=== PATIENT | male | born 1975 | race Caucasian/White ===

== ENCOUNTER 2024-09-30 15:20 | Emergency (ER) | payer OTHER, SELFPAY ==
[2024-09-30] VITALS (7 sets, daily range): BP systolic 121–154; BP diastolic 75–101; PULSE 78–100; RESP 15–17; TEMP 36.8; O2SAT 93–100
--- NOTE | ~2024-09-30 | CT_ITS ---
EXAMINATION: CTA chest abdomen pelvis DATE: 09/30/2024 16:19 INDICATION: Chest pain radiating to the back and left arm. TECHNIQUE: Computed tomographic angiography (CTA) of the chest, abdomen, and pelvis was performed wit h 100 mL Omnipaque-350 intravenous contrast. Automated exposure control and iterative reconstruction technique were employed. The dose-length product was 743.75 mGy-cm. Maximum intensity projection 3D-r econstructions of the aorta and other arteries were constructed by the technologist on a separate wor kstation. COMPARISON: Chest single view 09/30/2024 FINDINGS: CHEST CTA: The lungs demonstrate mild atelectasis. No pleural effusion. The heart size is normal. No pericardial effusion. There is mild aortic atherosclerosis. No aneurysm or dissection. There is no pulmonary emb olus. The bones are unremarkable. ABDOMEN AND PELVIS CTA: The liver, gallbladder, spleen, pancreas, adrenal glands, and kidneys are normal. There are bilateral inguinal hernias containing fat. Abdominal aorta is normal in caliber. There is mild aortic atherosc lerosis. There is no significant stenosis of celiac axis, superior mesenteric artery, the renal arter ies, or inferior mesenteric artery. The bladder is distended. There are no dilated loops of bowel. Th ere are changes of appendectomy. There are no pathologically enlarged lymph nodes. There is no free i ntraperitoneal fluid. There is mild lumbar spondylosis. IMPRESSION: 1. Mild aortic atherosclerosis. No aneurysm or dissection. Reviewed, dictated and finalized at location A. 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
--- NOTE | ~2024-09-30 | XR_ITS ---
XR chest 1V portable Ordering provider: Michele Culver MD History: 48 years Male with . cp . Comparison: None. FINDINGS: MEDIASTINUM: The cardiac silhouette is not enlarged. LUNGS: No infiltrates, effusions or pneumothorax. Bilateral minimal fibrotic changes in the lung base s. OTHER: No free air under the diaphragm. IMPRESSION: No acute cardiopulmonary pathology. Reviewed, dictated and finalized at location A. [employer]
--- NOTE | 2024-09-30 15:26 | ECG_ITS ---
Test Date: 2024-09-30 15:27:34 Measurements Intervals [place] Rate: 98 P: 55 OK: 148 QRS: 42 QRSD: 85 T: 54 QT: 322 QTc: 411 Interpretive Statements SINUS RHYTHM NONSPECIFIC T-WAVE ABNORMALITY No previous ECG available for comparison Electronically Signed On 09-30-2024 16:23:04 [employer] ATTACHER by Jose Walls M.D.
[2024-09-30 15:41] LABS: Basophils Absolute Auto 0.1 K/mm3 (0.0-0.1); Basophils Percent Auto 0.9 % (0.2-1.2); Eosinophils Absolute Auto 0.4 K/mm3 (0-0.3); Eosinophils Percent Auto 6.3 % (0-4.4); Hematocrit 43.5 % (42.0-52.0); Hemoglobin 15.5 g/dL (14.0-18.0); Immature Granulocyte Absolute 0.01 K/mm3 (0.00-0.031); Immature Granulocyte Percent A 0.2 % (0-0.5); Lymphocytes Percent Auto 21.4 % (18.3-44.2); Mean Corpuscular HGB Conc 35.6 g/dl (32-36); Mean Corpuscular Hemoglobin 32.2 pg (26-34); Mean Corpuscular Volume 90.4 fl (80-100); Mean Platelet Volume 8.8 fl (7.4-10.4); Monocytes Absolute Auto 0.6 K/mm3 (0.1-0.6); Monocytes Percent Auto 9.2 % (2.6-8.5); Neutrophils Absolute Auto 4.1 K/mm3 (1.3-6.7); Platelet Count Result 243 k/mm3 (150-375); Red Blood Count 4.81 M/mm3 (4.6-6.20); Red Cell Distribution Width 11.9 % (11.5-14.5); White Blood Count 6.6 K/mm3 (4.5-10.0)
[2024-09-30 15:52] LABS: Alanine Aminotransferase 39 U/L (6-50); Albumin Level 4.7 g/dL (3.5-5.1); Alkaline Phosphatase 73 U/L (38-126); Anion Gap 7 mmol/L (4-12); Aspartate Amino Transferase 44 U/L (17-59); Bilirubin,Total 1.4 mg/dL (0.2-1.3); Blood Urea Nitrogen 13 mg/dL (9-20); Calcium 9.5 mg/dL (8.4-10.2); Carbon Dioxide 29 mmol/L (22-30); Chloride 102 mmol/L (98-107); Estimated CRCL calculation 83 ml/min; Estimated Glomerular Filt Rate > 60; Glucose 107 mg/dL (65-110); Lipase 91 U/L (23-300); Potassium 4.3 mmol/L (3.4-5.0); Sodium 138 mmol/L (137-145)
[2024-09-30 15:55] LABS: INR 0.9; Partial Thromboplastin Time 21.8 Seconds (22.3-36.8); Prothrombin Time 12.8 Seconds (11.1-14.7)
[2024-09-30 16:03] LABS: Troponin I < 0.012 ng/mL (0.000-0.034)
[2024-09-30 17:58] LABS: NT Pro B Type Natriuretic Pept < 20 pg/mL (19.9-100)
--- NOTE | 2024-09-30 18:06 | ECG_ITS ---
Test Date: 2024-09-30 18:15:54 Measurements Intervals [place] Rate: 87 P: 58 [place]: 148 QRS: 51 QRSD: 90 T: 40 QT: 346 QTc: 418 Interpretive Statements SINUS RHYTHM WITH SINUS ARRHYTHMIA NONSPECIFIC T-WAVE ABNORMALITY Compared to ECG 09/30/2024 15:27:34 No significant changes Electronically Signed On 10-01-2024 14:19:09 [employer]IMMING [employer]OL ATTENDANT by Jose Walls M.D.
--- NOTE | 2024-09-30 18:29 | ED.GENADULT ---
HPI - General Adult General Chief complaint: Chest Pain Stated complaint: Chest Pain Time Seen by Provider: 09/30/24 15:23 History of Present Illness HPI narrative: this is a 48-year-old male history of chronic pain presenting with chest pain. He is 30 minutes prior to arrival he developed a chest pressure in the center of his chest wall sitting at his desk. His 1st dull and then is now sharp. It radiated to his left biceps to his back. Pain is constant. He has never had pain like this before there are no exacerbating alleviating symptoms. Pain was not associated with exertion diaphoresis or vomiting. No history of coronary artery disease. Patient has had significant issues of chronic pain and is scheduled to see a neurosurgeon and pain specially for chronic back pain. No fevers chills shortness of breath abdominal pain nausea vomiting or diarrhea Related Data Allergies Allergy/AdvReac Type Severity Reaction Status Date / Time erythromycin base Allergy Vomiting Verified 09/30/24 15:30 meloxicam Allergy Rash Verified 09/30/24 15:30 lisinopril AdvReac Cough Verified 09/30/24 15:30 Course Vital Signs Vital signs: Vital Signs Pulse Rate 95 09/30/24 15:21 Respiratory Rate 16 09/30/24 15:21 Blood Pressure 147/79 H 09/30/24 15:21 Pulse Oximetry 98 09/30/24 15:21 Oxygen Delivery Room Air 09/30/24 15:21 Pulse Rate 78 09/30/24 17:18 Respiratory Rate 16 09/30/24 17:18 Blood Pressure 147/95 H 09/30/24 17:18 Pulse Oximetry 93 09/30/24 17:18 Oxygen Delivery Room Air 09/30/24 17:00 Medical Decision Making [facility] Narrative Medical decision making narrative: -Course: 48-year-old male presenting chest pain. CTA chest abdomen pelvis, EKG x2, troponin x2 and BNP were all unremarkable. no emergent cause of chest pain on this workup. Patient is stable for further outpatient workup by his primary care physician. Heart score <4 Results were discussed with the patient his . Return precautions given. -DDX includes but is not limited to: ACS, chest wall pain, pleurisy, chronic pain, PE, dissection, pneumonia, pneumothorax -Co-morbidities complicating care: Chronic pain, HTN -Social determinants of health: positive for alcohol and marijuana -Independent interpretation of studies: Labs and imaging reviewed Independent EKG interpretation: Rhythm [sinus], Rate [87], [place] -[normal], HI -[normal], QRS [narrow], QTC [normal], T waves -[negative for concerning inversions], ST Segments - [Negative for concerning elevations] Final interpretations: [Normal Sinus Rhythm] -Shared decision making / Disposition: discharge Vital Signs Vital Signs: Vital Signs Pulse Rate 95 09/30/24 15:21 Respiratory Rate 16 09/30/24 15:21 Blood Pressure 147/79 H 09/30/24 15:21 Pulse Oximetry 98 09/30/24 15:21 Oxygen Delivery Room Air 09/30/24 15:21 Pulse Rate 78 09/30/24 17:18 Respiratory Rate 16 09/30/24 17:18 Blood Pressure 147/95 H 09/30/24 17:18 Pulse Oximetry 93 09/30/24 17:18 Oxygen Delivery Room Air 09/30/24 17:00 Lab Data 09/30/24 15:34 09/30/24 15:34 Labs: Lab Results 09/30/24 09/30/24 09/30/24 Range/Units 15:33 15:34 18:11 WBC 6.6 (4.5-10.0) K/mm3 RBC 4.81 (4.6-6.20) M/mm3 Hgb 15.5 (14.0-18.0) g/dL Hct 43.5 (42.0-52.0) % MCV 90.4 (80-100) fl MCH 32.2 (26-34) pg MCHC 35.6 (32-36) g/dl RDW 11.9 (11.5-14.5) % Plt Count 243 (150-375) k/mm3 MPV 8.8 (7.4-10.4) fl Immature Gran % (Auto) 0.2 (0-0.5) % Neut % (Auto) 62.0 (45.5-73.1) % Lymph % (Auto) 21.4 (18.3-44.2) % Dickson % (Auto) 9.2 H (2.6-8.5) % Eos % (Auto) 6.3 H (0-4.4) % Baso % (Auto) 0.9 (0.2-1.2) % Lymph # (Auto) 1.40 (0.9-3.2) K/mm3 Dickson # (Auto) 0.6 (0.1-0.6) K/mm3 Eos # (Auto) 0.4 H (0-0.3) K/mm3 Baso # (Auto) 0.1 (0.0-0.1) K/mm3 Abs Immat Gran (auto) 0.01 (0.00-0.031) K/mm3 Absolute Neuts (auto) 4.1 (1.3-6.7) K/mm3 Absolute Nucleated RBC 0.000 (0.0-0.012) K/mm3 Nucleated RBC % 0.0 (0.0-0.2) % PT 12.8 (11.1-14.7) Seconds INR 0.9 APTT 21.8 L (22.3-36.8) Seconds Sodium 138 (137-145) mmol/L Potassium 4.3 (3.4-5.0) mmol/L Chloride 102 (98-107) mmol/L Carbon Dioxide 29 (22-30) mmol/L Anion Gap 7 (4-12) mmol/L BUN 13 (9-20) mg/dL Creatinine 0.90 (0.7-1.3) mg/dL Estim Creat Clear Calc 83 ml/min Estimated GFR > 60 (59 - ) Glucose 107 (65-110) mg/dL Calcium 9.5 (8.4-10.2) mg/dL Total Bilirubin 1.4 H (0.2-1.3) mg/dL AST 44 (17-59) U/L ALT 39 (6-50) U/L Alkaline Phosphatase 73 (38-126) U/L Troponin I < 0.012 < 0.012 (0.000-0.034) ng/mL NT-Pro-B Natriuret Pep < 20 (19.9-100) pg/mL Total Protein 7.0 (6.3-8.2) g/dL Albumin 4.7 (3.5-5.1) g/dL Lipase 91 (23-300) U/L Discharge Plan Discharge Clinical Impression: Atypical chest pain Patient Disposition: Home, Self-Care Condition: Stable Instructions: Antibiotic Form, Chest Pain (ED) Additional Instructions: You were seen in the emergency department for chest pain. We did not find a cause of your pain. Please follow-up with your primary care physician and pain specialist for further management if you develop fevers, shortness of breath, or any new or worsening symptoms please return to the ED for re-evaluation. Patient Language: Vietnamese Follow-up/Referrals: UNKNOWN,DOCTOR [Primary Care Provider] - Quality HEART score for chest pain patients History: slightly suspicious ECG: normal Age: > 45 and < 65 years Risk factors: no risk factors known Troponin: < or = to 1x normal limit Heart score: 1
[2024-09-30 18:58] LABS: Troponin I < 0.012 ng/mL (0.000-0.034)
== END 2024-09-30 19:45 | disposition home or self-care (01) ==
PROVIDERS: Emergency Provider Emergency Medicine
DX: R07.89 Other chest pain (principal); I10 Essential (primary) hypertension; G89.29 Other chronic pain; R94.31 Abnormal electrocardiogram [ECG] [EKG]
CPT/HCPCS: 36415; 71045; 71275; 74174; 80053; 83690; 83880; 84484; 85025; 85610; 85730; 93005; 99284; Q9967

== ENCOUNTER 2024-11-25 15:10 | Outpatient (CLI) | payer OTHER, SELFPAY ==
--- NOTE | ~2024-11-25 | MR_ITS ---
EXAMINATION: MR lumbar spine wo con DATE: 11/25/2024 15:54 INDICATION: Low back pain. Spinal stenosis. TECHNIQUE: Magnetic resonance imaging (MRI) of the lumbar spine was performed without intravenous con trast. Sequences included sagittal T2-weighted FSE, sagittal T2-weighted FS FSE, sagittal T1-weighted FSE, and axial T2-weighted FSE. COMPARISON: None FINDINGS: Alignment is normal. Vertebral body heights are normal. There is mildly decreased disc heig ht at L4-L5. The distal spinal cord signal intensity is normal. The conus medullaris is at T12. The f ollowing disc levels are specifically discussed: L1-L2: The disc does not extend beyond the endplate margin. There is mild bilateral facet joint osteo arthritis. There is no neural foraminal stenosis. There is no central canal stenosis. L2-L3: The disc does not extend beyond the endplate margin. There is mild bilateral facet joint osteo arthritis. There is no neural foraminal stenosis. There is no central canal stenosis. L3-L4: The disc is mildly bulging. There is mild bilateral facet joint osteoarthritis. There is mild bilateral neural foraminal stenosis. There is no central canal stenosis. L4-L5: The disc is bulging. There is severe bilateral facet joint osteoarthritis. There is mild bilat eral neural foraminal stenosis. There is mild central canal stenosis. L5-S1: The disc does not extend beyond the endplate margin. There is moderate bilateral facet joint o steoarthritis. There is no neural foraminal stenosis. There is no central canal stenosis. IMPRESSION: 1. Mild lumbar spondylosis. Reviewed, dictated and finalized at location A. [employer] IMPRESSION: 1. Mild lumbar spondylosis.
== END 2024-11-25 15:11 | disposition home or self-care (01) ==
PROVIDERS: Visit Provider Internal Medicine
DX: M48.062 Spinal stenosis, lumbar region with neurogenic claudication (principal); M89.9 Disorder of bone, unspecified; M47.896 Other spondylosis, lumbar region
CPT/HCPCS: 72148

== ENCOUNTER 2024-12-24 10:27 | Outpatient (CLI) | payer OTHER, SELFPAY ==
--- NOTE | ~2024-12-24 | MR_ITS ---
EXAMINATION: MR brain/brain stem wo con DATE: 12/24/2024 11:17 INDICATION: Tremor. TECHNIQUE: Magnetic resonance imaging (MRI) of the brain and brainstem was performed without intraven ous contrast. COMPARISON: None. FINDINGS: There are scattered areas of nonspecific increased T2-weighted signal intensity in the cere bral white matter, which is within normal limits for the patient's age. There is no intracranial hemo rrhage, acute infarction, or abnormal intracranial mass lesion. The ventricles are normal in size. Th ere is mucosal thickening in left maxillary sinus. There is a trace right mastoid effusion. The orbit s are normal. IMPRESSION: 1. Normal brain. Reviewed, dictated and finalized at location B. IMPRESSION: 1. Normal brain.
== END 2024-12-24 10:28 | disposition home or self-care (01) ==
PROVIDERS: Referring Provider Internal Medicine; Visit Provider Psychiatry & Neurology Neurology
DX: R25.1 Tremor, unspecified (principal)
CPT/HCPCS: 70551

== ENCOUNTER 2025-06-14 13:02 | Emergency (ER) | payer OTHER, SELFPAY ==
[2025-06-14 13:10] VITALS: O2SAT 98
[2025-06-14 13:13] VITALS: BP 166/89; PULSE 117; RESP 16; TEMP 36.1; O2SAT 98
--- NOTE | 2025-06-14 13:38 | ED_ITS ---
HPI - URI/Sore Throat General Chief Complaint: Upper Respiratory Infection Stated Complaint: Sinus Infection Symptoms Time Seen by Provider: 06/14/25 13:38 Source: patient Mode of arrival: ambulatory Limitations: no limitations History of Present Illness HPI Narrative: 49-year-old male presents with complaint of chronic sinusitis. Reports congestion, postnasal drainage, sinus pressure for 8-9 days. Patient takes Xyzal daily. Has added and Flonase since pressure and drainage started. Afebrile. Reports yellowish green drainage from nose. Positive fatigue. Afebrile. All systems reviewed and negative except as noted above. Related Data Allergies Allergy/AdvReac Type Severity Reaction Status Date / Time erythromycin base Allergy Vomiting Verified 06/14/25 13:15 meloxicam Allergy Rash Verified 06/14/25 13:15 lisinopril AdvReac Cough Verified 06/14/25 13:15 PMFSH Comments At time of signature, agree with nursing past medical, surgical, social and family history. There is no relevant family history pertinent to the presenting complaint. Exam Narrative: GENERAL: This is a well-nourished, well-developed patient, in no apparent distress. HEAD: normocephalic, atraumatic. EYES: PERRL. Sclera clear/white. Vision is grossly intact. EARS: External ears normal, auditory canals clear and without drainage, TMs normal without perforation. Hearing grossly intact. NOSE: External nose normal with purulent nasal drainage, erythema to bilateral nares. No significant swelling. Frontal sinus tenderness on exam. THROAT: Mucous membranes moist, erythematous, clear post nasal drainage. No swelling or exudates. NECK: Neck supple, non-tender without lymphadenopathy, masses or thyromegaly. CARDIOVASCULAR: Regular rate and rhythm without murmurs, gallops, or rubs. RESPIRATORY: Clear to auscultation. Breath sounds equal bilaterally. No wheezes, rales, or rhonchi. SKIN: warm, Dry, intact with no suspicious lesions or rash, good texture and turgor. NEURO: awake, alert, and oriented to person, place and time. There were no obvious focal neurologic abnormalities. EXTREMITIES: No joint tenderness, effusion, or edema noted. Course Course Level of Care: Express Care Visit Vital Signs Vital signs: Vital Signs Pulse Oximetry 98 06/14/25 13:10 Oxygen Delivery Room Air 06/14/25 13:10 Temperature 36.1 C L 06/14/25 13:13 Pulse Rate 117 H 06/14/25 13:13 Respiratory Rate 16 06/14/25 13:13 Blood Pressure 166/89 H 06/14/25 13:13 Pulse Oximetry 98 06/14/25 13:13 Oxygen Delivery Room Air 06/14/25 13:10 Reviewed MDM - URI/Sore Throat MDM Narrative Medical decision making narrative: Patient's blood pressure is elevated today. He has been taking pseudoephedrine to treat congestion. States he has not been able to use his CPAP for 3 days due to congestion. Educated him that pseudoephedrine elevates blood pressure and he should not take it if he has hypertension. Will treat patient with antibiotic for bacterial sinusitis due to duration of symptoms and exam findings. Patient agrees with plan of care. Differential Diagnosis Differential diagnosis: Likely upper respiratory infection, sinusitis, viral infection and influenza Discharge Plan Discharge Clinical Impression: Acute bacterial sinusitis Patient Disposition: Home Condition: Stable Instructions: Antibiotic Form, Sinusitis (ED) Additional Instructions: Take medications as prescribed. Continue Xyzal and Flonase daily. Drink at least 64 oz of water a day. See your doctor if symptoms are not improving. Patient Language: Telugu Prescriptions: New methylprednisolone [Medrol (Luis Felipe)] 4 mg tablets,dose pack See Rx Instructions PO .COMPLEX Qty: 21 0RF Rx Instructions: orally per package directions amoxicillin-pot clavulanate 875-125 mg tablet 1 tablet PO Q12H 7 Days Qty: 14 0RF Follow-up/Referrals: Sergio,MD Yessenia [Primary Care Provider, Unknown] Time of Disposition: 13:43
== END 2025-06-14 13:45 | disposition home or self-care (01) ==
PROVIDERS: Emergency Provider Nurse Practitioner Family; PCP Internal Medicine
DX: J01.90 Acute sinusitis, unspecified (principal); I10 Essential (primary) hypertension; M79.7 Fibromyalgia; G62.9 Polyneuropathy, unspecified
CPT/HCPCS: 99213; G0463